=== PATIENT | female | born 1965 | race Caucasian/White ===

== ENCOUNTER 2021-04-14 17:22 | Emergency (ER) | payer MEDICAID ==
[~2021-04-14] VITALS: Ht 157.5 cm; Wt 73.0 kg
[2021-04-14] MEDS ORDERED: MECLIZINE 25MG TABLET PO ONE (19:15)
[2021-04-14 19:35] LABS: BASOPHILS % 0.7 % (0.0-2.0); EOSINOPHILS % 0.6 % (0.0-5.0); HEMATOCRIT. 41.6 % (36.0-48.0); HEMOGLOBIN. 13.8 g/dL (12.0-16.0); LYMPHOCYTES % 26.2 % (20.0-50.0); MEAN CORPUSCULAR HEMOGLOBIN 27.5 pg (28.0-32.0); MEAN CORPUSCULAR VOLUME 83.1 fL (81.0-99.0); MEAN PLATELET VOLUME 7.6 fl (7.4-10.4); MONOCYTES % 7.7 % (2.0-8.0); NEUTROPHILS % 64.8 % (40.0-76.0); PLATELET 408 x1000/uL (130-400); RED CELL DISTRIBUTION WIDTH 13.4 % (11.6-14.6)
[2021-04-14 19:42] LABS: CHLORIDE 103 mEq/L (98-107)
[2021-04-14 21:15] LABS: CLARITY URINE CLEAR (CLEAR); COLOR URINE YELLOW (YELLOW); KETONES URINE NEGATIVE (NEGATIVE); LEUKOCYTE ESTERASE URINE 1+ (NEGATIVE); NITRITE URINE NEGATIVE (NEGATIVE); OCCULT BLOOD URINE NEGATIVE (NEGATIVE); PROTEIN URINE NEGATIVE (NEGATIVE); SPECIFIC GRAVITY URINE 1.015 (1.005-1.030); UROBILINOGEN URINE 0.2 E.U./dL (0.2-1.0)
[2021-04-14] MEDS ORDERED: CLINDAMYCIN 600 MG in DEXTROSE 5% WATER 50 ML IV ONE (22:00)
[2021-04-14] MEDS ORDERED: OFLO5DRO4 RIGHT EAR (22:18)
[2021-04-14] MEDS ORDERED: AMOX-424 MT (22:20)
[2021-04-14] MEDS ORDERED: MECL-217 MT (22:24)
[2021-04-14 22:30] VITALS: BP 127/90
[2021-04-14] MEDS ORDERED: IOHEXOL-300 100 ML BOTTLE ONE (23:27)
== END 2021-04-14 22:30 | disposition home or self-care (01) ==
LOC: ER 17:22
DX: H60.91 Unspecified otitis externa, right ear (principal); R42 Dizziness and giddiness; Z86.73 Personal history of transient ischemic attack (TIA), and cerebral infarction without residual deficits; Z85.42 Personal history of malignant neoplasm of other parts of uterus; Z98.890 Other specified postprocedural states
CPT/HCPCS: 36415; 70450; 70487; 80053; 81003; 85025; 93005; 99285; J3490; J7060; Q9967; J8597

== ENCOUNTER 2021-09-13 17:12 | Inpatient (IN) | payer MEDICAID ==
[~2021-09-13] VITALS: Ht 157.5 cm; Wt 77.1 kg
[~2021-09-13 17:12] MED LIST: AMOX-424 MT; MECL-217 MT; OFLO5DRO4 RIGHT EAR
[2021-09-13] MEDS ORDERED: MORPHINE SULFATE 4 MG/ML CPJ (NOT FOR IM USE) IV STA (17:22)
[2021-09-13] MEDS ORDERED: ONDANSETRON HCL 4MG/2ML INJ IV STA (17:22)
[2021-09-13] MEDS ORDERED: NITROGLYCERIN OINT 1GM/INCH UDPKT TD ONE (17:30)
[2021-09-13] MEDS ORDERED: ASPIRIN 81MG TABLET PO ONE (17:30)
[2021-09-13 18:02] LABS: BASOPHILS % 0.9 % (0.0-2.0); EOSINOPHILS % 1.7 % (0.0-5.0); HEMATOCRIT. 39.7 % (36.0-48.0); HEMOGLOBIN. 13.7 g/dL (12.0-16.0); LYMPHOCYTES % 56.3 % (20.0-50.0); MEAN CORPUSCULAR HEMOGLOBIN 28.6 pg (28.0-32.0); MEAN CORPUSCULAR VOLUME 82.7 fL (81.0-99.0); MEAN PLATELET VOLUME 8.2 fl (7.4-10.4); MONOCYTES % 7.4 % (2.0-8.0); NEUTROPHILS % 33.7 % (40.0-76.0); PLATELET 265 x1000/uL (130-400); RED BLOOD CELL COUNT 4.81 mill/uL (4.2-5.4)
[2021-09-13 18:13] LABS: CHLORIDE 106 mEq/L (98-107)
[2021-09-13] MEDS ORDERED: GUAIFENESIN 200MG/10ML SUGAR FREE UDC PO PRN (20:30)
[2021-09-13] MEDS ORDERED: IPRATROPIUM/ALBUTEROL 0.5-3(2.5)MG/3ML NEB HHN PRN (20:30)
[2021-09-13] MEDS ORDERED: NALOXONE HCL 0.4MG/ML VIAL IV PRN (20:30)
[2021-09-13] MEDS ORDERED: HYDROCODONE/ACETAMINOPHEN 5/325MG TABLET PO PRN (20:30)
[2021-09-13] MEDS ORDERED: CLONIDINE 0.1MG TABLET PO PRN (20:30)
[2021-09-13] MEDS ORDERED: MORPHINE SULFATE 2 MG/ML CPJ (NOT FOR IM USE) IV PRN (20:30)
[2021-09-13] MEDS ORDERED: DIPHENHYDRAMINE 50MG/ML VIAL IV PRN (20:30)
[2021-09-13] MEDS ORDERED: DOCUSATE SODIUM 100MG CAPSULE PO PRN (20:30)
[2021-09-13] MEDS ORDERED: ONDANSETRON HCL 4MG/2ML INJ IV PRN (20:30)
[2021-09-13] MEDS ORDERED: MAGNESIUM/ALUMINUM HYDROXIDE/SIMETHICONE 30ML UDC PO PRN (20:30)
[2021-09-13] MEDS ORDERED: ACETAMINOPHEN 325MG TABLET PO PRN (20:30)
[2021-09-13] MEDS ORDERED: LORAZEPAM 2MG/ML CPJ IV PRN (20:30)
[2021-09-13] MEDS ORDERED: HYDRALAZINE 20MG/ML VIAL IV PRN (20:30)
[2021-09-13] MEDS: ENOXAPARIN 40MG/0.4ML SYR SUBCUT SCH (21:31)
[2021-09-13] MEDS: SODIUM CHLORIDE 0.9% INJ 3ML FLUSH IVF SCH (21:31)
[2021-09-13 21:44] LABS: CREATINE KINASE 75 IU/L (26-192); CREATINE KINASE MB FRACTION 1.4 ng/mL (0.5-3.6)
[2021-09-13 22:30] VITALS: BP 124/62
[2021-09-14] MEDS: SODIUM CHLORIDE 0.9% INJ 3ML FLUSH IVF SCH ×3 (05:27→21:16)
[2021-09-14 06:21] LABS: BASOPHILS % 0.7 % (0.0-2.0); EOSINOPHILS % 1.5 % (0.0-5.0); HEMATOCRIT. 38.5 % (36.0-48.0); HEMOGLOBIN. 13.2 g/dL (12.0-16.0); LYMPHOCYTES % 51.5 % (20.0-50.0); MEAN CORPUSCULAR HEMOGLOBIN 28.5 pg (28.0-32.0); MEAN CORPUSCULAR VOLUME 83.1 fL (81.0-99.0); MEAN PLATELET VOLUME 8.5 fl (7.4-10.4); NEUTROPHILS % 38.3 % (40.0-76.0); PLATELET 266 x1000/uL (130-400); RED BLOOD CELL COUNT 4.63 mill/uL (4.2-5.4); RED CELL DISTRIBUTION WIDTH 13.9 % (11.6-14.6)
[2021-09-14 06:32] LABS: CHLORIDE 107 mEq/L (98-107)
[2021-09-14 06:59] LABS: CREATINE KINASE 67 IU/L (26-192); CREATINE KINASE MB FRACTION 1.2 ng/mL (0.5-3.6)
[2021-09-14 08:00] VITALS: BP 115/61
[2021-09-14] MEDS ORDERED: POTASSIUM CHLORIDE 20MEQ TABLET SR PO NR (09:30)
[2021-09-14 10:13] LABS: T4 FREE 1.17 ng/dL (0.76-1.46)
[2021-09-14 12:00] VITALS: BP 120/60
[2021-09-14 16:00] VITALS: BP 121/59
[2021-09-14] MEDS ORDERED: IOHEXOL-350 100 ML BOTTLE ONE (19:40)
[2021-09-14 20:00] VITALS: BP 103/54
[2021-09-14] MEDS: ENOXAPARIN 40MG/0.4ML SYR SUBCUT SCH (21:16)
[2021-09-15] VITALS: BP 115/64
[2021-09-15 04:00] VITALS: BP 112/65
[2021-09-15] MEDS: SODIUM CHLORIDE 0.9% INJ 3ML FLUSH IVF SCH (06:00)
[2021-09-15 08:00] VITALS: BP 113/61
[2021-09-15 09:22] VITALS: BP 113/61
== END 2021-09-15 10:25 | disposition home or self-care (01) | DRG 203 ==
LOC: ER 17:12 → 8WST 18:38 → EDBEDREQTM 18:45 → EDBEDREQ 18:45 → ENRESERV 21:42
PROVIDERS: ADMIT Internal Medicine; ATTEND Internal Medicine
DX: M94.0 Chondrocostal junction syndrome [Tietze] (principal); I10 Essential (primary) hypertension; R59.0 Localized enlarged lymph nodes; Z79.2 Long term (current) use of antibiotics; Z79.899 Other long term (current) drug therapy; Z90.711 Acquired absence of uterus with remaining cervical stump; Z85.9 Personal history of malignant neoplasm, unspecified; Z86.73 Personal history of transient ischemic attack (TIA), and cerebral infarction without residual deficits
CPT/HCPCS: 36415; 71045; 71275; 80053; 80061; 82550; 82553; 83036; 83880; 84439; 84443; 84484; 85025; 85379; 93005; 93306; 93970; 99291; J1650; J2270; J2405; Q9967